=== PATIENT | female | born 1965 | race Caucasian/White ===

== ENCOUNTER 2017-12-24 11:00 | Inpatient (IN) ==
[2017-12-24 11:58] LABS: Basophils # 0.1 10*3/uL (0.0-0.2); Basophils % 0.6 % (0.0-0.8); Eosinophils # 0.2 10*3/uL (0.0-0.87); Hematocrit 39.3 VOL% (35.7-47.0); Hemoglobin 12.6 GM/DL (12.0-16.0); Immature Granulocytes % 0.4 %; Immature Granulocytes Absolute 0.04 #; Lymphocytes # 1.6 10*3/uL (1.4-4.0); Lymphocytes % 17.2 % (21.3-54.2); Mean Corpuscular HGB Conc 32.1 GM/DL (32-36); Mean Corpuscular Hemoglobin 29 PG (27-34); Mean Corpuscular Volume 91.8 FL (87-102); Mean Platelet Volume 10.1 FL (9.6-12.0); Monocytes # 0.9 10*3/uL (0.11-0.8); Monocytes % 9.7 % (1.7-12.7); Neutrophils # 6.7 10*3/uL (1.4-7.4); Neutrophils % 70.1 % (38.7-73.9); Platelet Count 251 T/CUMM (130-400); Red Blood Count 4.28 MC/CUMM (3.8-5.5); Red Cell Distribution Width 14.1 % (9.3-17.3); White Blood Count 9.5 T/CUMM (4-12)
[2017-12-24 12:21] LABS: Calcium 9.3 MG/DL (8.5-10.1); Osmolality,Calculated 274.8 MOS/KG (273-304); Potassium 3.7 MMOL/L (3.5-5.1)
[2017-12-24] MEDS ORDERED: LEVOFLOXACIN 500 MG TABLET ONE (12:48)
[2017-12-24] MEDS ORDERED: LEVOFLOXACIN 500 MG TABLET PO ONE (12:50)
[2017-12-24] MEDS: LACTATED RINGERS 1,000 ML IV SCH (13:32)
[2017-12-24] MEDS ORDERED: GENTAMICIN 80 MG/2 ML VIAL ONE (13:53)
[2017-12-24] MEDS ORDERED: SUGAMMADEX 200 MG/2 ML VIAL IV ONE ×2 (14:02→14:08)
[2017-12-24] MEDS ORDERED: PROMETHAZINE 25 MG/1 ML VIAL IM PRN (14:11)
[2017-12-24] MEDS ORDERED: ONDANSETRON 4 MG/2 ML VIAL IV PRN (14:11)
[2017-12-24] MEDS ORDERED: ACETAMINOPHEN 325 MG TABLET PO PRN (14:11)
[2017-12-24] MEDS ORDERED: fentaNYL 100 MCG/2 ML VIAL ONE (14:29)
[2017-12-24] MEDS ORDERED: SEVOFLURANE 1 UNIT/15 MINUTE INH ONE (14:30)
[2017-12-24] MEDS ORDERED: KETOROLAC 30 MG/1 ML VIAL ONE (14:30)
[2017-12-24] MEDS ORDERED: ONDANSETRON 4 MG/2 ML VIAL ONE (14:30)
[2017-12-24] MEDS ORDERED: PROPOFOL 200 MG/20 ML VIAL IV ONE (14:30)
[2017-12-24] MEDS ORDERED: MIDAZOLAM 2 MG/2 ML VIAL ONE (14:30)
[2017-12-24] MEDS ORDERED: ROCURONIUM 100 MG/10 ML VIAL IV ONE (14:31)
[2017-12-24] MEDS: HYDROmorphone 2 MG/1 ML VIAL IV PRN ×2 (16:27→20:36)
[2017-12-24] MEDS ORDERED: AMITRIPTYLINE 100 MG TABLET PO SCH (21:30)
[2017-12-24] MEDS: AMITRIPTYLINE 50 MG TABLET PO SCH (22:55)
[2017-12-24] MEDS: SODIUM CHLORIDE 0.9% 1,000 ML IV SCH (22:55)
[2017-12-25] MEDS: HYDROmorphone 2 MG/1 ML VIAL IV PRN ×3 (01:36→18:02)
[2017-12-25 06:34] LABS: Calcium 8.4 MG/DL (8.5-10.1); Osmolality,Calculated 277.5 MOS/KG (273-304); Potassium 3.7 MMOL/L (3.5-5.1)
[2017-12-25] MEDS: SODIUM CHLORIDE 0.9% 1,000 ML IV SCH ×3 (07:00→23:05)
[2017-12-25] MEDS: levETIRAcetam 500 MG TABLET PO SCH ×2 (09:09→21:33)
[2017-12-25] MEDS: clonazePAM 0.5 MG TABLET PO SCH ×2 (09:09→21:32)
[2017-12-25] MEDS: TOPIRAMATE 25 MG TABLET PO SCH (09:09)
[2017-12-25] MEDS: cefTRIAXone 1,000 MG in SYRINGE 1 EACH IV SCH (09:11)
[2017-12-25] MEDS ORDERED: NON-FORMULARY MEDICATION (Clonazepam [Klonopin] 2 MG) PO SCH (21:00)
[2017-12-25] MEDS ORDERED: diphenhydrAMINE CAP 25 MG CAPSULE PO PRN (21:18)
[2017-12-25] MEDS: AMITRIPTYLINE 50 MG TABLET PO SCH (21:33)
[2017-12-25] MEDS: LACTATED RINGERS 1,000 ML IV SCH (22:13)
[2017-12-26] MEDS: HYDROmorphone 2 MG/1 ML VIAL IV PRN ×2 (03:32→20:56)
[2017-12-26 05:01] LABS: Basophils % 0.7 % (0.0-0.8); Eosinophils # 0.2 10*3/uL (0.0-0.87); Hematocrit 34.6 VOL% (35.7-47.0); Hemoglobin 10.3 GM/DL (12.0-16.0); Immature Granulocytes % 0.2 %; Immature Granulocytes Absolute 0.01 #; Lymphocytes # 1.6 10*3/uL (1.4-4.0); Lymphocytes % 28.8 % (21.3-54.2); Mean Corpuscular HGB Conc 29.8 GM/DL (32-36); Mean Corpuscular Hemoglobin 28 PG (27-34); Monocytes # 0.5 10*3/uL (0.11-0.8); Neutrophils # 3.3 10*3/uL (1.4-7.4); Neutrophils % 58.3 % (38.7-73.9); Platelet Count 225 T/CUMM (130-400); Red Blood Count 3.72 MC/CUMM (3.8-5.5); Red Cell Distribution Width 14.3 % (9.3-17.3); White Blood Count 5.7 T/CUMM (4-12)
[2017-12-26 05:16] LABS: Calcium 8.3 MG/DL (8.5-10.1); Potassium 3.9 MMOL/L (3.5-5.1)
[2017-12-26] MEDS ORDERED: FAMOTIDINE 20 MG TABLET PO ONE (07:54)
[2017-12-26] MEDS ORDERED: DIAZEPAM 5 MG TABLET PO ONE (07:54)
[2017-12-26] MEDS: clonazePAM 0.5 MG TABLET PO SCH ×2 (08:32→20:48)
[2017-12-26] MEDS: levETIRAcetam 500 MG TABLET PO SCH ×2 (08:36→20:48)
[2017-12-26] MEDS: TOPIRAMATE 25 MG TABLET PO SCH (09:00)
[2017-12-26] MEDS ORDERED: cefTRIAXone 1,000 MG VIAL ONE (13:14)
[2017-12-26] MEDS ORDERED: SEVOFLURANE 1 UNIT/15 MINUTE INH ONE (13:42)
[2017-12-26] MEDS ORDERED: ONDANSETRON 4 MG/2 ML VIAL ONE (13:42)
[2017-12-26] MEDS ORDERED: fentaNYL 100 MCG/2 ML VIAL ONE (13:42)
[2017-12-26] MEDS ORDERED: PROPOFOL 200 MG/20 ML VIAL IV ONE (13:42)
[2017-12-26] MEDS ORDERED: MIDAZOLAM 2 MG/2 ML VIAL ONE (13:42)
[2017-12-26] MEDS ORDERED: GLYCOPYRROLATE 0.4 MG/2 ML VIAL ONE (13:42)
[2017-12-26] MEDS ORDERED: PHENYLEPHRINE 1 MG/10 ML SYRINGE IV ONE (13:43)
[2017-12-26] MEDS ORDERED: ROCURONIUM 100 MG/10 ML VIAL IV ONE (13:43)
[2017-12-26] MEDS ORDERED: NEOSTIGMINE 10 MG/10 ML VIAL ONE (13:43)
[2017-12-26] MEDS ORDERED: KETOROLAC 15 MG/1 ML VIAL IV PRN (14:21)
[2017-12-26] MEDS ORDERED: OXYBUTYNIN 5 MG TABLET PO ONE (14:30)
[2017-12-26] MEDS: cefTRIAXone 1,000 MG in SYRINGE 1 EACH IV SCH (18:31)
[2017-12-26] MEDS: SODIUM CHLORIDE 0.9% 1,000 ML IV SCH ×2 (19:17→20:41)
[2017-12-26] MEDS: LACTATED RINGERS 1,000 ML IV SCH (19:17)
[2017-12-26] MEDS: AMITRIPTYLINE 50 MG TABLET PO SCH (20:48)
[2017-12-27] MEDS: SODIUM CHLORIDE 0.9% 1,000 ML IV SCH (01:45)
[2017-12-27 06:05] LABS: Basophils # 0.1 10*3/uL (0.0-0.2); Basophils % 0.6 % (0.0-0.8); Eosinophils # 0.2 10*3/uL (0.0-0.87); Eosinophils % 2.2 % (0.00-10.9); Hematocrit 33.3 VOL% (35.7-47.0); Hemoglobin 10.2 GM/DL (12.0-16.0); Immature Granulocytes % 0.4 %; Immature Granulocytes Absolute 0.03 #; Lymphocytes # 1.1 10*3/uL (1.4-4.0); Lymphocytes % 14.7 % (21.3-54.2); Mean Corpuscular HGB Conc 30.6 GM/DL (32-36); Mean Corpuscular Hemoglobin 28 PG (27-34); Mean Corpuscular Volume 92.8 FL (87-102); Mean Platelet Volume 11.4 FL (9.6-12.0); Monocytes # 0.7 10*3/uL (0.11-0.8); Monocytes % 8.4 % (1.7-12.7); Neutrophils # 5.7 10*3/uL (1.4-7.4); Neutrophils % 73.7 % (38.7-73.9); Platelet Count 174 T/CUMM (130-400); Red Blood Count 3.59 MC/CUMM (3.8-5.5); Red Cell Distribution Width 14.5 % (9.3-17.3); White Blood Count 7.7 T/CUMM (4-12)
[2017-12-27 06:23] LABS: Calcium 8.5 MG/DL (8.5-10.1); Osmolality,Calculated 280.1 MOS/KG (273-304); Potassium 3.9 MMOL/L (3.5-5.1)
[2017-12-27 07:27] LABS: Band Neutrophils 19 % (0-10); Eosinophils 3 % (0-10); Lymphocytes 23 % (20-55); Platelet Estimate Adequate; Segmented Neutrophils 51 % (50-85); Total Cells Counted 100
[2017-12-27 07:28] LABS: Anisocytosis Slight
[2017-12-27 07:33] VITALS: BP 109/67
[2017-12-27] MEDS: cefTRIAXone 1,000 MG in SYRINGE 1 EACH IV SCH (09:40)
[2017-12-27] MEDS: clonazePAM 0.5 MG TABLET PO SCH (09:40)
[2017-12-27] MEDS: levETIRAcetam 500 MG TABLET PO SCH (09:40)
[2017-12-27] MEDS: TOPIRAMATE 25 MG TABLET PO SCH (09:40)
[2017-12-27] MEDS: HYDROmorphone 2 MG/1 ML VIAL IV PRN (09:49)
== END 2017-12-27 11:20 | disposition home or self-care (01) | DRG 661 ==
LOC: N.OR 11:00 → N.SDSINP 11:08 → N.5E 15:16
PROVIDERS: ADMIT Surgery; ATTEND Surgery

== ENCOUNTER 2020-04-27 15:57 | Observation (INO) ==
[2020-04-27 16:41] LABS: Basophils # 0.1 10*3/uL (0.0-0.2); Eosinophils # 0.1 10*3/uL (0.0-0.87); Eosinophils % 1.2 % (0.00-10.9); Hematocrit 41.6 VOL% (35.7-47.0); Hemoglobin 13.3 GM/DL (12.0-16.0); Immature Granulocytes % 0.3 %; Immature Granulocytes Absolute 0.03 #; Lymphocytes # 2.1 10*3/uL (1.4-4.0); Lymphocytes % 23.7 % (21.3-54.2); Mean Corpuscular Volume 88.5 FL (87-102); Mean Platelet Volume 10.4 FL (9.6-12.0); Monocytes % 6.6 % (1.7-12.7); Neutrophils % 67.2 % (38.7-73.9); Platelet Count 260 T/CUMM (130-400); Red Cell Distribution Width 16.4 % (9.3-17.3); White Blood Count 8.7 T/CUMM (4-12)
[2020-04-27 16:52] LABS: PT Patient Result 10.3 SECS (9.8-11.9); Partial Thromboplastin Time 28.7 SECS (23.9-33.8)
[2020-04-27 17:06] LABS: Alanine Aminotransferase 21 U/L (13-56); Albumin 2.8 G/DL (3.4-5.0); Alkaline Phosphatase 84 U/L (45-117); Aspartate Amino Transferase 26 U/L (0-37); Blood Urea Nitrogen 10 MG/DL (7-18); CKMB % 1.4 %; Calcium 8.4 MG/DL (8.5-10.1); Carbon Dioxide 23 MMOL/L (21-32); Estimated Glom Filtration Rate 68 ML/MIN; Glucose 92 MG/DL (74-106); Osmolality,Calculated 277.4 MOS/KG (273-304); Potassium 3.2 MMOL/L (3.5-5.1); Sodium 140 MMOL/L (136-145); Total Protein 5.5 G/DL (5.0-7.5); Troponin I < 0.015 NG/ML (0.00-0.045)
[2020-04-27 17:25] LABS: Bacteria,Urine Occasional /HPF (Few); Bilirubin,Urine Negative (Negative); Blood, Urine Moderate mg/dL (Negative); Glucose,Urine (UA) Negative (Negative); Ketones,Urine Negative (Negative); Mucus,Urine Occasional /LPF (Occasional); Nitrite,Urine Negative (Negative); Protein,Urine Negative; RBC,Urine 4 /HPF (0-4); Squamous Epithelial Cell,Urine Occasional /HPF (0-10); Urine Appearance CLEAR (Clear); Urine Color Straw (Yellow); Urine Specific Gravity 1.003 (1.001-1.035); Urine Urobilinogen < 2.0 EU/DL (0.2-1.0); WBC,Urine 2 /HPF (0-6)
[2020-04-27 17:36] LABS: Barbiturates Screen,Urine Negative (Negative); Benzodiazepines Screen,Urine Negative (Negative); Cannabinoid Screen,Urine Negative (Negative); Opiate Screen,Urine Negative (Negative); Phencyclidine Screen,Urine Negative (Negative)
[2020-04-27] MEDS ORDERED: ACETAMINOPHEN 500 MG TABLET PO STA (18:21)
[2020-04-27] MEDS ORDERED: METOCLOPRAMIDE 10 MG/2 ML VIAL IV STA (20:24)
[2020-04-27] MEDS ORDERED: KETOROLAC 30 MG/1 ML VIAL IV STA (20:24)
[2020-04-27] MEDS ORDERED: DEXTROSE 50% 25 GM/50 ML VIAL IV PRN (23:19)
[2020-04-27] MEDS ORDERED: hydrALAZINE 20 MG/1 ML VIAL IV PRN (23:19)
[2020-04-27] MEDS ORDERED: ONDANSETRON 4 MG/2 ML VIAL IV PRN (23:19)
[2020-04-27] MEDS ORDERED: GLUCAGON 1 MG VIAL IM PRN (23:19)
[2020-04-27] MEDS ORDERED: DOCUSATE SODIUM 100 MG CAPSULE PO PRN (23:19)
[2020-04-27] MEDS ORDERED: ACETAMINOPHEN 325 MG TABLET PO PRN (23:19)
[2020-04-27] MEDS ORDERED: ZIPRASIDONE 20 MG CAPSULE PO SCH (23:23)
[2020-04-27] MEDS ORDERED: ENOXAPARIN 40 MG/0.4 ML SYRINGE SUBCUT SCH (23:30)
[2020-04-28] MEDS ORDERED: tiZANidine 4 MG TABLET PO PRN
[2020-04-28] MEDS ORDERED: POTASSIUM CHLORIDE 20 MEQ/15 ML UDCUP PER TUBE PRN (00:02)
[2020-04-28] MEDS: POTASSIUM CHLORIDE 20 MEQ TABLET PO PRN ×4 (00:32→09:04)
[2020-04-28 05:04] LABS: Basophils # 0.1 10*3/uL (0.0-0.2); Basophils % 0.8 % (0.0-0.8); Eosinophils # 0.2 10*3/uL (0.0-0.87); Eosinophils % 2.4 % (0.00-10.9); Hematocrit 37.4 VOL% (35.7-47.0); Hemoglobin 11.5 GM/DL (12.0-16.0); Immature Granulocytes % 0.3 %; Immature Granulocytes Absolute 0.02 #; Lymphocytes # 2.4 10*3/uL (1.4-4.0); Lymphocytes % 37.5 % (21.3-54.2); Mean Corpuscular HGB Conc 30.7 GM/DL (32-36); Mean Corpuscular Volume 90.8 FL (87-102); Mean Platelet Volume 10.1 FL (9.6-12.0); Monocytes % 6.9 % (1.7-12.7); Neutrophils % 52.1 % (38.7-73.9); Platelet Count 215 T/CUMM (130-400); Red Blood Count 4.12 MC/CUMM (3.8-5.5); Red Cell Distribution Width 16.4 % (9.3-17.3); White Blood Count 6.3 T/CUMM (4-12)
[2020-04-28 05:50] LABS: Osmolality,Calculated 291.4 MOS/KG (273-304); Potassium 3.5 MMOL/L (3.5-5.1); Risk Ratio 5.1; Thyroid Stimulating Hormone 3.98 uIU/ml (0.358-3.74)
[2020-04-28] MEDS ORDERED: TAMSULOSIN 0.4 MG CAPSULE PO SCH (09:00)
[2020-04-28] MEDS ORDERED: SERTRALINE 100 MG TABLET PO SCH (09:00)
[2020-04-28] MEDS ORDERED: PANTOPRAZOLE 40 MG TABLET PO SCH (09:00)
[2020-04-28] MEDS: levETIRAcetam 500 MG TABLET PO SCH ×2 (09:02)
[2020-04-28] MEDS: clonazePAM 0.5 MG TABLET PO SCH ×2 (09:02)
[2020-04-28] MEDS: GABAPENTIN 300 MG CAPSULE PO SCH ×2 (09:03)
[2020-04-28] MEDS: TOPIRAMATE 25 MG TABLET PO SCH ×2 (09:03)
[2020-04-28] MEDS: DIVALPROEX 250 MG TABLET PO SCH ×2 (09:17)
[2020-04-28] MEDS ORDERED: ASPIRIN EC 81 MG TABLET PO SCH (10:30)
[2020-04-28 13:27] VITALS: BP 128/76
[2020-04-28] MEDS ORDERED: AMITRIPTYLINE 50 MG TABLET PO SCH (21:00)
== END 2020-04-28 13:50 | disposition home or self-care (01) ==
LOC: N.EDINP 15:57 → N.ED 15:57 → N.CC 21:55
PROVIDERS: ADMIT Internal Medicine; ATTEND Internal Medicine